=== PATIENT | female | born 1950 | race African-American/Black ===

== ENCOUNTER 2022-12-21 13:37 | Emergency (ER) | payer OTHER ==
[2022-12-21 14:18] VITALS: BP 109/64; PULSE 90; RESP 19; TEMP 97.8; BMI 31.1
[2022-12-21] MEDS ORDERED: KETOROLAC TROMETHAMINE 30 MG/1 ML VIAL IM ONE (14:59)
[2022-12-21] MEDS ORDERED: KETOROLAC TROMETHAMINE 30 MG/1 ML VIAL ONE (15:09)
== END 2022-12-21 16:43 | disposition home or self-care (01) ==
LOC: JERFT 13:37
PROC: 3E0233Z Introduction of Anti-inflammatory into Muscle, Percutaneous Approach (ICD-10-PCS; principal; 2022-12-21)
DX: M25.531 Pain in right wrist (principal); M67.833 Other specified disorders of tendon, right wrist
CPT/HCPCS: 73110-TC-RT-FY; 99284-25